=== PATIENT | male | born 1980 | race Caucasian/White ===

== ENCOUNTER 2019-04-25 18:19 | Emergency (ER) | payer OTHER, SELFPAY ==
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
[2019-04-25 18:58] VITALS: BP 144/88; PULSE 117; RESP 20; TEMP 37.1; O2SAT 98
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
== END 2019-04-25 20:15 | disposition home or self-care (01) ==
PROVIDERS: Emergency Provider Nurse Practitioner Family; PCP Family Medicine
DX: S29.002A Unspecified injury of muscle and tendon of back wall of thorax, initial encounter (principal); Z98.1 Arthrodesis status; S22.061S Stable burst fracture of T7-T8 vertebra, sequela; S22.071S Stable burst fracture of T9-T10 vertebra, sequela; S22.081S Stable burst fracture of T11-T12 vertebra, sequela; Z87.891 Personal history of nicotine dependence; Y35.813A Legal intervention involving manhandling, suspect injured, initial encounter; R03.0 Elevated blood-pressure reading, without diagnosis of hypertension
CPT/HCPCS: 71046; 72072; 99214; G0463

== ENCOUNTER 2020-08-27 08:20 | Emergency (ER) | payer OTHER, SELFPAY ==
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
[2020-08-27 08:28] VITALS: BP 114/86; PULSE 108; RESP 20; TEMP 36.8; O2SAT 98
[2020-08-27 08:42] VITALS: BP 114/86; PULSE 108; RESP 20; TEMP 36.8; O2SAT 98
[2020-08-27] MEDS: SILVER SULFADIAZINE 1% CR 50 GM JAR (*BKC) 1 APPLIC TOPICAL (09:34)
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
== END 2020-08-27 09:42 | disposition short-term general hospital (02) ==
PROVIDERS: Emergency Provider Nurse Practitioner; PCP Family Medicine
DX: T65.891A Toxic effect of other specified substances, accidental (unintentional), initial encounter (principal); T22.612A Corrosion of second degree of left forearm, initial encounter; T22.611A Corrosion of second degree of right forearm, initial encounter; T21.62XA Corrosion of second degree of abdominal wall, initial encounter; T24.402A Corrosion of unspecified degree of unspecified site of left lower limb, except ankle and foot, initial encounter; T24.401A Corrosion of unspecified degree of unspecified site of right lower limb, except ankle and foot, initial encounter; Z87.891 Personal history of nicotine dependence; K21.9 Gastro-esophageal reflux disease without esophagitis; Q65.89 Other specified congenital deformities of hip
CPT/HCPCS: 16030; 99213; A9270; G0463

== ENCOUNTER 2022-04-21 14:02 | Outpatient (CLI) | payer OTHER, SELFPAY | END 2022-04-21 14:03 | disposition home or self-care (01) | LOC: ANHAUDIO 14:02 | PROVIDERS: PCP Internal Medicine; Visit Provider Internal Medicine | DX: H91.90 Unspecified hearing loss, unspecified ear (principal) | CPT/HCPCS: 99199 ==

== ENCOUNTER 2023-07-02 18:52 | Emergency (ER) | payer OTHER, SELFPAY ==
--- NOTE | ~2023-07-02 | XR_ITS ---
EXAMINATION: XR hand RT min 3V DATE: 07/02/2023 19:15 INDICATION: Right hand injury and pain and swelling. TECHNIQUE: 4 views of right hand were obtained. COMPARISON: Right hand fourth digit radiographs 04/01/2015 FINDINGS: Lunate and triquetrum are absent. The proximal aspect of the scaphoid is absent. There is s evere osteoarthritis between radius and capitate. There is mild osteoarthritis of first carpometacarp al joint, first metacarpophalangeal joint, and some of the interphalangeal joints. IMPRESSION: 1. Polyarticular osteoarthritis. 2. Surgical changes of the proximal carpal row. Reviewed, dictated and finalized at location E.
[2023-07-02 19:00] VITALS: BP 123/86; PULSE 111; RESP 18; TEMP 37.2; O2SAT 100
--- NOTE | 2023-07-02 19:28 | PC.NURSE ---
Dionne co in room with pt for report.
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
== END 2023-07-02 19:41 | disposition home or self-care (01) ==
PROVIDERS: Emergency Provider Nurse Practitioner Family; PCP Family Medicine
DX: S60.221A Contusion of right hand, initial encounter (principal); Y04.8XXA Assault by other bodily force, initial encounter; Z87.891 Personal history of nicotine dependence
CPT/HCPCS: 73130; 99213; G0463

== ENCOUNTER 2023-09-07 09:15 | Emergency (ER) | payer OTHER, SELFPAY ==
[2023-09-07 09:24] VITALS: BP 132/77; PULSE 104; RESP 20; TEMP 36.5; O2SAT 100
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
[2023-09-07 20:45] LABS: Trichomonas Vag PCR NOT DETECTED (NOT DETECTE)
[2023-09-07 21:11] LABS: Chlamydia trachomatis NOT DETECTED (NOT DETECTE); Neisseria gonorrhoeae PCR NOT DETECTED (NOT DETECTE)
== END 2023-09-07 10:15 | disposition home or self-care (01) ==
PROVIDERS: Emergency Provider Nurse Practitioner Family; PCP Family Medicine
DX: M25.532 Pain in left wrist (principal); M25.531 Pain in right wrist; Z20.822 Contact with and (suspected) exposure to COVID-19; Z87.891 Personal history of nicotine dependence
CPT/HCPCS: 87491; 87591; 87661; 99214; G0463

== ENCOUNTER 2023-12-10 15:05 | Emergency (ER) | payer OTHER, SELFPAY ==
[2023-12-10 15:11] VITALS: BP 118/82; PULSE 100; RESP 18; TEMP 37; O2SAT 98
--- NOTE | 2023-12-10 15:18 | ED_ITS ---
HPI - Eye Problem General Chief complaint: Urogenital-Male Stated complaint: Urinary Problems and Eye Irritation Related Data Home Medications Medication Instructions Recorded Confirmed cyclobenzaprine 10 mg tablet 10 mg PO TID PRN Pain 12/10/23 12/10/23 gabapentin 800 mg tablet 800 mg PO DAILY 12/10/23 12/10/23 Allergies Allergy/AdvReac Type Severity Reaction Status Date / Time No Known Allergies Allergy Verified 12/10/23 15:17 [facility] Family History Family History Other Family history of cardiovascular disease Social History Social History Smoking status: Former smoker Second hand tobacco smoke exposure: Yes Smoking end date: 03/01/12 Alcohol intake: current Discharge Plan Discharge Prescriptions: No Action tamsulosin 0.4 mg Capsule 0.4 mg PO DAILY omeprazole 20 mg capsule,delayed release(DR/EC) 20 mg PO DAILY valacyclovir 1 gram tablet 1,000 mg PO Q12H 7 Days Qty: 14 0RF prednisone 50 mg tablet 50 mg PO DAILY Qty: 5 0RF miconazole nitrate 2 % cream 1 applic topical BID 14 Days Qty: 28 0RF Follow-up/Referrals: Israel,Minoo Solano MD [Primary Care Provider] -
--- NOTE | 2023-12-10 15:30 | ED.MALEGU ---
HPI - Male Genitourinary General Chief complaint: Urogenital-Male Stated complaint: Urinary Problems and Eye Irritation Time Seen by Provider: 12/10/23 15:34 Mode of arrival: ambulatory Limitations: no limitations History of Present Illness HPI Narrative: 43-year-old male presents with multiple complaints he reports he will with bilateral irritation and his eyes with watery drainage. Reports there are itchy and uncomfortable. Reports this happened after he slept in his contact lenses. He denies vision changes. In a separate complaint he reports to pimple like lesions at the base of the shaft of his penis. Near his hairline. He reports there were hairs and then this morning that he pulled out and they have since been getting smaller. He denies any itching or pain at that site. He reports some chronic intermittent urethral discomfort. He denies urgency, frequency, burning when he pees, fever, aches, chills, sweats. He reports he has been tested for STDs that were negative. MD Complaint: other Related Data Home Medications Medication Instructions Recorded Confirmed cyclobenzaprine 10 mg tablet 10 mg PO TID PRN Pain 12/10/23 12/10/23 gabapentin 800 mg tablet 800 mg PO DAILY 12/10/23 12/10/23 Allergies Allergy/AdvReac Type Severity Reaction Status Date / Time No Known Allergies Allergy Verified 12/10/23 15:17 Review of Systems Review of Systems: CONSTITUTIONAL: Denies malaise, chills, sweats, or fever. EYES: Denies visual changes. Reports bilateral irritation, redness, discharge. ENT: Denies rhinorrhea, congestion, sinus pain, otalgia or sore throat. CARDIOVASCULAR: Denies chest pain, palpitations, or edema. RESPIRATORY: Denies cough or dyspnea. GASTROINTESTINAL: Denies abdominal pain, nausea, vomiting, diarrhea, bloody, or mucous stools. GENITOURINARY: Reports intermittent in urethral irritation SKIN: Reports to red bumps at the base of his penis MUSCULOSKELETAL: Denies back pain, joint pain, or myalgia. NEUROLOGIC: Denies numbness, weakness, or headache. PSYCHIATRIC: Denies anxiety or depression. All systems reviewed & are unremarkable except as noted in HPI and below [facility] Family History Family History Other Family history of cardiovascular disease Social History Social History Smoking status: Former smoker Second hand tobacco smoke exposure: Yes Smoking end date: 03/01/12 Alcohol intake: current Comments At time of signature, agree with nursing past medical, surgical, social and family history. There is no relevant family history pertinent to the presenting complaint Exam Narrative: GENERAL: Well-appearing, well-nourished, and in no acute distress. HEAD: Normocephalic, atraumatic. EYES: PERRLA and EOMI. No nystagmus. Bilateral conjunctiva and sclera injected with discharge ENT: Nares clear. Mucous membranes moist. NECK: Supple. CHEST: No respiratory distress. Speaks in full sentences. HEART: Regular rate and rhythm. SKIN: Warm, dry, no visible rash. To erythematous papules noted at the base of the shaft of the penis without any surrounding vesicles, nontender, consistent with hair follicle inflammation NEURO: Alert and oriented x3. PSYCH: Normal mood and affect Course Course Emergency Course: Patient is aware of diagnosis, understands and agrees to treatment plan. Anticipatory guidance given. Patient agrees to follow-up as directed and is aware of reasons to seek care at the emergency department. Portions of this record may have been created with voice recognition software Level of Care: Express Care Visit Vital Signs Vital signs: Vital Signs Temperature 98.6 F 12/10/23 15:11 Pulse Rate 100 12/10/23 15:11 Respiratory Rate 18 12/10/23 15:11 Blood Pressure 118/82 12/10/23 15:11 Pulse Oximetry 98 12/10/23 15:11 Oxygen Delivery Room Air 12/10/23
[2023-12-10 15:59] LABS: EDUAAPPEAR Clear; EDUABILI 1+ (Negative); EDUABLOOD Negative (Negative); EDUACOLOR1 Amber; EDUAGLUCOSE Negative (Negative); EDUAKETONE Trace (Negative); EDUALEUKO Negative (Negative); EDUANITRATE Negative (Negative); EDUAPH 6.5; EDUAPROTEIN Trace (Negative)
== END 2023-12-10 15:44 | disposition home or self-care (01) ==
PROVIDERS: Emergency Provider Nurse Practitioner; PCP Family Medicine
DX: H10.9 Unspecified conjunctivitis (principal); N48.89 Other specified disorders of penis
CPT/HCPCS: 81003; 99213; G0463